=== PATIENT | male | born 1935 | race Caucasian/White ===

== ENCOUNTER 2022-11-10 04:34 | Emergency (ER) | payer MEDICARE ==
[~2022-11-10] VITALS: Ht 167.6 cm; Wt 63.0 kg
[2022-11-10 04:41] VITALS: O2SAT 99
[2022-11-10 05:03] LABS: BASOPHILS % 0.2 % (0.0-2.0); EOSINOPHILS % 0.1 % (0.0-5.0); HEMOGLOBIN. 14.5 g/dL (14.0-18.0); MEAN CORPUSCULAR HEMOGLOBIN 30.3 pg (28.0-32.0); MEAN CORPUSCULAR VOLUME 91.8 fL (80.0-94.0); MEAN PLATELET VOLUME 8.5 fl (7.4-10.4); MONOCYTES % 9.2 % (2.0-8.0); NEUTROPHILS % 82.5 % (40.0-76.0); PLATELET 226 x1000/uL (130-400); RED BLOOD CELL COUNT 4.79 mill/uL (4.7-6.1); RED CELL DISTRIBUTION WIDTH 14.5 % (11.6-14.6)
[2022-11-10 05:10] LABS: CHLORIDE 106 mEq/L (98-107)
[2022-11-10 06:18] LABS: CLARITY URINE CLEAR (CLEAR); COLOR URINE YELLOW (YELLOW); KETONES URINE TRACE (NEGATIVE); LEUKOCYTE ESTERASE URINE NEGATIVE (NEGATIVE); NITRITE URINE NEGATIVE (NEGATIVE); OCCULT BLOOD URINE 1+ (NEGATIVE); PROTEIN URINE NEGATIVE (NEGATIVE); SPECIFIC GRAVITY URINE 1.018 (1.005-1.030); UROBILINOGEN URINE 0.2 E.U./dL (0.2-1.0)
[2022-11-10] MEDS ORDERED: IOHEXOL-350 100 ML BOTTLE ONE (07:11)
[2022-11-10 12:53] VITALS: BP 140/82; PULSE 80; RESP 20; TEMP 98.2
== END 2022-11-10 12:53 | disposition home or self-care (01) ==
LOC: ER 05:01 → CANBEDREQ 19:43
DX: R07.89 Other chest pain (principal); K80.20 Calculus of gallbladder without cholecystitis without obstruction; I71.21 Aneurysm of the ascending aorta, without rupture
CPT/HCPCS: 99285; 71275; 76705; 71045; 80053; 81003; 83880; 83690; 85025; 84484; 93005; 36415; Q9967

== ENCOUNTER 2022-11-11 08:54 | Emergency (ER) | payer MEDICARE ==
[~2022-11-11] VITALS: Ht 167.6 cm; Wt 80.0 kg
[2022-11-11 08:58] VITALS: BP 135/81; PULSE 103; RESP 18; TEMP 98.6; O2SAT 100
[2022-11-11] MEDS ORDERED: ASPIRIN 81MG TABLET PO ONE (09:30)
[2022-11-11] MEDS ORDERED: NITROGLYCERIN 0.4MG TABLET SL SL PRN (09:30)
[2022-11-11 09:44] LABS: BASOPHILS % 0.1 % (0.0-2.0); EOSINOPHILS % 0.1 % (0.0-5.0); HEMATOCRIT. 43.2 % (42.0-52.0); HEMOGLOBIN. 14.3 g/dL (14.0-18.0); LYMPHOCYTES % 7.3 % (20.0-50.0); MEAN CORPUSCULAR HEMOGLOBIN 30.4 pg (28.0-32.0); MEAN PLATELET VOLUME 8.7 fl (7.4-10.4); NEUTROPHILS % 85.5 % (40.0-76.0); PLATELET 241 x1000/uL (130-400); RED CELL DISTRIBUTION WIDTH 14.1 % (11.6-14.6)
[2022-11-11 09:46] LABS: CHLORIDE 107 mEq/L (98-107)
== END 2022-11-11 12:14 | disposition left against medical advice (07) ==
LOC: ER 09:04 → CANBEDREQ 12:13 → ER 12:14
DX: R07.89 Other chest pain (principal); I25.10 Atherosclerotic heart disease of native coronary artery without angina pectoris; E78.00 Pure hypercholesterolemia, unspecified
CPT/HCPCS: 36415; 71045; 80053; 84484; 85025; 93005; 99285